=== PATIENT | female | born 1970 | race Caucasian/White ===

== ENCOUNTER → 2018-07-19 | Day surgery (SDC) | payer OTHER ==
[~2018-07-19] MED LIST: FENTANYL CITRATE/PF 100MCG/2 ML INJ ONE; GLUCAGON FOR INJ 1 MG VIAL ONE; HYOSCYAMINE SULFATE 0.5 MG/ML INJ ONE; LABETALOL HCL 5 MG/ML 20ML VIAL ONE; LISINOPRIL10 MG PO; MIDAZOLAM HCL 2 MG/2 ML VIAL ONE; MULTI-VITAMIN1 EACH PO; PROPOFOL IV EMULSION 10 MG/ML 50 ML VIAL ONE
--- OUTSIDE RECORDS SUMMARY | 2018-07-19 06:05 | XMS REPORT ---
Author Author [facility] Address Unknown Phone Unavailable Care Team Providers Care Hand Pleater Name Role Phone RACHEAL CAMPBELL Unavailable Unavailable Problems This patient has no known problems. Allergies, Adverse Reactions, Alerts This patient has no known allergies or adverse reactions. Medications This patient has no known medications. Results Test Description Test Time Test Comments Text Results Atomic Results Result Comments Toxicology 2016-09-11 13:32:00 Toxicology (test code=RERE) Not Detected NotDetected Toxicology (test code=PCP) Not Detected NotDetected Toxicology (test code=COCN) Not Detected NotDetected Toxicology (test code=METHAMPU) Not Detected NotDetected Toxicology (test code=OPIA) Not Detected NotDetected Toxicology (test code=AMPHU) Not Detected NotDetected Toxicology (test code=DORIS) Not Detected NotDetected Toxicology (test code=TRICY) Not Detected NotDetected Toxicology (test code=MTD) Not Detected NotDetected Toxicology (test code=CYRUS) Not Detected NotDetected Toxicology (test code=OXYCOD) Not Detected NotDetected Toxicology (test code=PPX) Not Detected NotDetected Toxicology (test code=MTCUTOFF) The [employer] Profile- V Panel for Qualitative Drugs ofAbuse assays are for presumptive screening testing only.The drug class and detection limits are as follows:Drug Class Detection LimitAmphetamine 500 ng/mL*Barbiturates 200 ng/mLBenzodiazepines 150 ng/mL*Cocaine 150 ng/mL*Methamphetamine 500 ng/mL*Methadone 200 ng/mL*Opiates 100 ng/mL*Oxycodone 100 ng/mLPCP 25 ng/mLPropoxyphene 300 ng/mLTricyclic Antidepressants 300 ng/mLCannabinoids (THC) 50 ng/mLTests which yield a presumptive positive result must betested using a more specific alternate chemical method inorder to obtain a confirmed analytical result. Additionalconfirmation and identification may be ordered on a routinebasis, if desired. Presumptive positive urines are held fortwo weeks. Urine Source: Urine Clean [id number] 13:21:00* Test Item Value Reference Range Comments Urinalysis (test code=UACLR) Straw Yellow Urinalysis (test code=UACLY) Clear Clear Urinalysis (test code=SPGR) 1.010 1.005-1.030 Urinalysis (test code=NEHEMIAH) 7.0 5.0-9.0 Urinalysis (test code=UALEU) Negative Negative Urinalysis (test code=UANIT) Negative Negative Urinalysis (test code=PROUADIP) Negative mg/dL Neg-Trace Urinalysis (test code=GLUCU) Negative mg/dL Negative Urinalysis (test code=KETU) Negative mg/dL Negative Urinalysis (test code=UAUROB) 0.2 mg/dL 0.2-1.0 Urinalysis (test code=UABIL) Negative Negative Urinalysis (test code=UABLD) Negative Negative Urine Source: Urine Clean [id number] 12:47:00* Test Item Value Reference Range Comments Chemistry (test code=CKMBM-T) 2.0 ng/mL 0-6.6 Chemistry (test code=TROPI-T) 0.061 ng/mL < 0.028 Reference Range 0.00 - 0.028 ng/mL Negative 0.029 - 0.29 ng/mL Indeterminate Greater or Equal to 0.3 ng/mL Strongly suggests CA [id number] 12:45:00* Test Item Value Reference Range Comments Chemistry (test code=NA-T) 141 mmol/L 136-145 Chemistry (test code=K-T) 3.9 mmol/L 3.5-5.1 Chemistry (test code=CL) 106 mmol/L 98-107 Chemistry (test code=CO2) 24 mmol/L 22-29 Chemistry (test code=ANGP) 15 mmol/L 10-20 Chemistry (test code=BUN) 11 mg/dL 7.0-18.7 Chemistry (test code=CREATT) 0.98 mg/dL 0.6-1.1 Chemistry (test code=EGFRMDRD) 61 Reference Range for Estimated GFR: Greater than 90 mL/min/1.73 m2NOTE:The MDRD equation has not been validated for use with theelderly (over 70 years of age), women, patien tswith serious comorbid condition or persons with extremes ofbody size, muscle mass, or nutritional status. Chemistry (test code=GLU-T) 80 mg/dL 70-105 Chemistry (test code=CA) 9.5 mg/dL 7.8-10.44 Chemistry (test code=TBILI) 0.6 mg/dL 0.2-1.2 Chemistry (test code=TP) 7.5 g/dL 6.0-8.3 Chemistry (test code=ALB) 4.3 g/dL 3.5-5.0 Chemistry (test code=GLOB) 3.2 g/dL 2.4-3.5 Chemistry (test code=AG) 1.3 g/dL 1.2-2.2 Chemistry (test code=ALP) 57 U/L 40-150 Chemistry (test code=AST) 31 U/L 5-34 Chemistry (test code=ALT) 19 U/L 8-55 [id number] 12:45:00* Test Item Value Reference Range Comments Chemistry (test code=CK) 175 U/L 29-168 [id number] 12:45:00* Test Item Value Reference Range Comments Chemistry (test code=ACET-T) Less than 6.0 mcg/mL 10.0-30.0 Therapeutic Range: 10.0 - 30.0 ug/mLToxic Range: Possible toxicity: 150 - 200 ug/mL Probable toxicity: Greater than 200 ug/mL*IMPORTANT TESTING INFORMATION* The half-life of NAC is 2 hours. The total NAC clearanceis 5.6 hours for adults and 11 hours for Newborns. Testing acetaminophen levels prior to a reasonable timeframe for clearance can cause falsely decreasedacetaminophen levels. Chemistry (test code=ETOH) Less than 10 mg/dL Less than 10 The pharmacological response to blood alcohol levels mayvary from individual to individual. Negative: Less than 10 mg/dL Toxic: 50 - 100 mg/dL Depression of PEANUT SHELLER: Greater than 100 mg/dL Fatalities reported: Greater than 400 mg/dL Chemistry (test code=SALCY) Less than 8.0 mg/dL 15.0-30.0 [id number] 12:39:00* Test Item Value Reference Range Comments Coagulation (test code=PT-T) 12.9 SEC 12.0-14.7 Coagulation (test code=INR) 1.0 ATTENTION: READ CAREFULLY The recommended therapeutic ranges for oral anticoagulanttreatments are: Low Intensity: 1.5 - 2.0 Moderate Intensity: 2.0 - 3.0 High Intensity (1): 2.5 - 3.5 High Intensity (2): 3.0 - 4.0 CRITICAL: > 4.0 Anticoagulant? NONEMedical Necessity SUSPECT COAGULOPATHYAnticoagulant? NONEMedi yamile Necessity: SUSP [id number] 12:39:00* Test Item Value Reference Range Comments Coagulation (test code=PTT) 24.6 SEC 22.9-36.1 Anticoagulant? NONEMedical Necessity SUSPECT COAGULOPATHYAnticoagulant? NONEMedi yamile Necessity: SUSP [id number] 12:30:00* Test Item Value Reference Range Comments Hematology (test code=WBCT) 6.4 thou/uL 4.8-10.8 Hematology (test code=RBCT) 4.44 mill/uL 4.20-5.40 Hematology (test code=HGBT) 13.9 g/dL 12.0-16.0 Hematology (test code=HCTT) 41.6 % 36.0-47.0 Hematology (test code=MCV) 93.7 fl 81.0-99.0 Hematology (test code=MCH) 31.3 pg 27.0-31.0 Hematology (test code=MCHC) 33.4 g/dL 32.0-36.0 Hematology (test code=RDW) 11.9 % 11.5-14.5 Hematology (test code=PLTT) 234 thou/uL 130-400 Hematology (test code=MPV) 8.6 fL 7.4-10.4 Hematology (test code=%NEUT) 67.8 % 42.0-75.0 Hematology (test code=%LYMPH) 22.1 % 21.0-51.0 Hematology (test code=%MONO) 7.3 % 0.0-10.0 Hematology (test code=%EOS) 1.5 % 0.0-10.0 Hematology (test code=%BASO) 1.3 % 0.0-1.0 Hematology (test code=NEUT#) 4.3 thou/uL 1.40-6.50 Hematology (test code=LYMPH#) 1.4 thou/uL 1.20-3.40 Hematology (test code=MONO#) 0.5 thou/uL 0.11-0.59 Hematology (test code=EOS#) 0.1 thou/uL 0.0-0.7 Hematology (test code=BASO#) 0.1 thou/uL 0.0-0.2
--- NOTE | 2018-07-19 09:20 | NUR ---
SPIRITUAL CARE - Pre-Surgery Assessment: Pt in bed. Pt's at bedside. Pt reported supportive attention from family and friends. Intervention: I provided pastoral presence, hospitality, and sympathetic listening. I acquainted pt with availability of engineering recruiter while hospitalized. Outcome: Pt expressed appreciation for visit. No need for follow up indicated at this time. JANAE Mouralain Spiritual Care Department O: [phone] Pager: [phone] ([phone] number calling from)
[2018-07-19 11:05] VITALS: BP 140/80
--- NOTE | 2018-07-19 17:56 | Operative Report ---
DATE OF PROCEDURE: 07/19/2018 SURGEON: Syed Ambrose MD PROCEDURE: Colonoscopy and polypectomy. INDICATION FOR COLONOSCOPY: Surveillance colonoscopy, personal history of colon polyps. MEDICATIONS: The patient was done under MAC. Please see anesthesiologist's note. PROCEDURE IN DETAIL: With the patient in left lateral decubitus position, flexible fiberoptic Olympus colonoscope was inserted into the rectum with ease and advanced all the way to the cecum. The scope was then withdrawn slowly. Mucosa overlying the cecum appeared to be within normal limits. Scattered diverticular disease was noted throughout. Two polyps were hot biopsied from the sigmoid. Three polyps were hot biopsied from the rectum. The scope was then retroflexed into the distal rectum and small internal hemorrhoids were noted, none of which was actively bleeding. The scope was then straightened out, it was subsequently withdrawn. The patient tolerated procedure well. IMPRESSION: 1. Diverticulosis. 2. Sigmoid colon polyps x2, hot biopsied. 3. Rectal polyps x3, hot biopsied. 4. Internal hemorrhoids none actively bleeding. PLAN: Follow up histology. Initiate high-fiber, low-fat diet. Initiate high-fiber supplement. The patient might benefit from a followup colonoscopy in 5 years. Syed Ambrose MD [facility] [place] /[id number] cc: Sharita Roberts
== END | disposition home or self-care (01) ==
LOC: OR 06:03
PROVIDERS: ATTEND Internal Medicine Gastroenterology
DX: K59.00 Constipation, unspecified (principal); K63.5 Polyp of colon; K62.1 Rectal polyp; K57.30 Diverticulosis of large intestine without perforation or abscess without bleeding; K64.8 Other hemorrhoids; I10 Essential (primary) hypertension; Z88.1 Allergy status to other antibiotic agents; Z01.810 Encounter for preprocedural cardiovascular examination; Z68.28 Body mass index [BMI] 28.0-28.9, adult
CPT/HCPCS: 45384; 81025; 93005; J1610; J1980; J2250; J2704; J3490; 45378